=== PATIENT | male | born 1990 | race Caucasian/White ===

== ENCOUNTER 2016-12-10 19:10 | Emergency (ER) | payer BC, OTHER ==
[~2016-12-10] VITALS: Ht 160 cm; Wt 74.8 kg
[2016-12-10 19:14] VITALS: Ht 160 cm; Wt 74.8 kg
[2016-12-10] MEDS ORDERED: HYDROCODONE/ACETAMOPHEN 5/325MG TAB PO ONE (19:30)
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
[2016-12-10] MEDS ORDERED: NORCO 5/325MG HOME PACK PO ONE (21:00)
[2016-12-10 21:03] VITALS: BP 133/87; PULSE 86; TEMP 36.8; O2SAT 97
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
== END 2016-12-10 21:05 | disposition home or self-care (01) ==
LOC: C.EDB 19:11 → C.EDD 21:05
DX: M54.2 Cervicalgia (principal); R51 Headache; M25.512 Pain in left shoulder; V49.40XA Driver injured in collision with unspecified motor vehicles in traffic accident, initial encounter; Y93.89 Activity, other specified; Y99.8 Other external cause status; Y92.410 Unspecified street and highway as the place of occurrence of the external cause; F17.200 Nicotine dependence, unspecified, uncomplicated

== ENCOUNTER 2017-03-10 19:17 | Emergency (ER) | payer BC ==
[~2017-03-10] VITALS: Ht 160 cm; Wt 74.1 kg
[2017-03-10 19:37] VITALS: TEMP 36.6; Ht 160 cm; Wt 74.1 kg
[2017-03-10] MEDS ORDERED: IBUPROFEN 800 MG TAB PO STA (19:58)
[2017-03-10] MEDS ORDERED: TRAMADOL HCL 50 MG TAB PO STA (19:58)
[2017-03-10] MEDS ORDERED: ACETAMINOPHEN 500 MG TAB PO STA (19:58)
[2017-03-10] MEDS ORDERED: BACITRACIN OINT 15 GM TUBE ONE (20:57)
[2017-03-10] MEDS ORDERED: OXYC1TAB3 PO (20:59)
[2017-03-10] MEDS ORDERED: OXYCODONE IR HOME PACK PO ONE (21:00)
[2017-03-10] MEDS ORDERED: BACITRACIN OINT 15 GM TUBE EXT ONE (21:00)
[2017-03-10 21:11] VITALS: BP 131/71; PULSE 70; O2SAT 99
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
== END 2017-03-10 21:13 | disposition home or self-care (01) ==
LOC: C.EDB 19:18 → C.EDD 21:13
DX: T23.392A Burn of third degree of multiple sites of left wrist and hand, initial encounter (principal); T31.0 Burns involving less than 10% of body surface; X19.XXXA Contact with other heat and hot substances, initial encounter; F17.200 Nicotine dependence, unspecified, uncomplicated